=== PATIENT | male | born 1950 | race Caucasian/White ===

== ENCOUNTER 2024-04-12 14:05 | Emergency (ER) | payer MEDICARE, SELFPAY ==
[2024-04-12 14:08] VITALS: BP 136/63; BMI 24.1
[2024-04-12 14:11] VITALS: BP 136/63
[2024-04-12 14:28] LABS: % Basophils 0.2 % (0-2); % Eosinophils 0.1 % (0-6); % Immature Granulocytes 0.4 % (0-0.5); % Lymphocytes 7.1 % (20.5-51.1); % Neutrophils 87.2 % (42.2-75.2); Absolute Immature Granulocytes 0.1 10^3/uL (0-0.05); Absolute Monocytes 0.7 10^3/uL (0.1-0.6); Absolute Neutrophils 12.1 10^3/uL (1.4-6.5); Hematocrit 33.8 % (39.0-52.0); Hemoglobin 11.2 g/dL (13.0-18.0); Mean Corp Hgb Conc. 33.1 g/dL (33.0-37.0); Mean Corpuscular Hgb 26.7 pg (27.0-31.0); Mean Corpuscular Volume 80.7 fL (80.0-94.0); Mean Platelet Volume 10.8 fL (7.4-10.4); Nucleated Red Blood Cells % 0 % (-); Platelet Count 219 10^3/uL (130-400); Red Blood Cell Count 4.19 10^6/uL (4.70-6.10); Red Cell Dist. Width 14.7 % (11.5-14.5); White Blood Cell Count 13.9 10^3/uL (4.8-10.8)
[2024-04-12 14:33] LABS: Urine Albumin Trace (Neg - Trace); Urine Bilirubin Negative (Negative); Urine Character Slightly Cloudy (Clear); Urine Color Yellow; Urine Glucose 3+ (Negative); Urine Ketone 1+ (Negative); Urine Leukocyte 2+ (Negative); Urine Nitrite Positive (Negative); Urine Occult Blood 2+ (Negative); Urine Urobilinogen Negative (Neg - 1+)
[2024-04-12 14:43] LABS: Urine Bacteria Moderate (Negative); Urine Squamous Cell 0-2 /LPF (Few); Urine White Cell 90-100 /HPF (0-5)
[2024-04-12 14:44] LABS: ALT (SGPT) 19 U/L (0-50); AST (SGOT) 24 U/L (17-59); Alkaline Phosphatase 90 U/L (38-126); Blood Urea Nitrogen 26 mg/dl (9-20); Calcium 9.6 mg/dl (8.4-10.2); Carbon Dioxide 16 mmol/L (22-30); Chloride 95 mmol/L (98-107); Estimated Creatinine Clearance 44 ml/min; Glucose 290 mg/dl (70-99); Lipase 69 U/L (23-300); Potassium 4.6 mmol/L (3.5-5.1); Sodium 128 mmol/L (135-145); Total Bilirubin 0.6 mg/dl (0.2-1.3); Total Protein 6.6 g/dl (6.3-8.2); eGFR 57.29
[2024-04-12 15:00] VITALS: BP 112/65
--- NOTE | 2024-04-12 15:09 | ED.GENMED ---
History of Present Illness
General
Chief Complaint: Weakness
Time Seen by Provider: 04/12/24 15:04
History of Present Illness
History of Present Illness:
TIME OF INITIAL ENCOUNTER: 3:09 PM
HPI: Patient comes in by ambulance from home. He was having shaking chills earlier. However currently he feels overall improved. Family did give antipyretic earlier today. They also tried amoxicillin empirically. He did have increased urination
overnight. He has a history of kidney stone most recently managed about 4 months ago at an outside facility.
EXAM:
GENERAL: Well appearing in no distress
HEENT: Moist oral mucosa
CARDIOVASCULAR: No murmurs, normal heart rate, regular rhythm, No chest wall tenderness
PULMONARY: No respiratory distress, breath sounds are clear and equal
ABDOMEN: Soft with no peritoneal signs, minimal if any suprapubic tenderness
NEUROLOGIC: Excellent strength all extremities, no coordination deficits
PSYCHIATRIC: Appropriate mental status, normal insight and judgement
EXTREMITIES: Nontender, no edema, moves all extremities equally
SKIN: No rash, no lesions
NUMBER AND COMPLEXITY OF PROBLEMS ADDRESSED AT THE ENCOUNTER
� Chronic conditions affecting care: CAD, hypertension, hyperlipidemia, GERD, diabetes
� Acute Exacerbation and/or Progression of Chronic Illness: This is an acute problem
� Differential Diagnosis includes: UTI, dehydration, bacteremia, sepsis
AMOUNT AND/OR COMPLEXITY OF DATA TO BE REVIEWED AND ANALYZED
� I performed an independent evaluation of and my interpretation is:
EKG:
CT: CT imaging personally reviewed and agree with radiologist interpretation�no ureteral stone
X-rays:
Laboratory Studies: White count 13.9, hemoglobin 11.2, sodium 128, bicarb is 16, glucose 290, urinalysis shows 90-100 white cells per high-powered field
Other:
� Review of other/old records: The patient was admitted here in November and with AV block
� Clinical information was obtained by an independent historian: I spoke to the at bedside
� Prescriptions/Medications Considered but not given:
� Further testing considered but not performed:
RISK OF COMPLICATIONS AND/OR MORBIDITY OR MORTALITY OF PATIENT MANAGEMENT
� Social determinants of health affecting care: Lives at home
� Discussion with other providers:
� Escalation of care including admission/observation vs risk of discharge considered: The patient has a low bicarb and has leukocytosis however the vital signs are unremarkable. Overall he feels quite well. I offered to
consider keeping him here in the hospital. Will give IV fluids and also add a lactic acid level.
ANY OTHER UPDATES:
4:30 PM: The patient voided 30 minutes prior but still has a bladder scan of just under 400 mL. He states he had similar presentation with prior kidney stone. Will obtain CT imaging. Lactic acid pending.
6 PM: Lactic acid normal. He continues to feel well. He does not want to stay in the hospital and is eager to go home. Gave low-dose Cipro (GFR 44). He is to follow-up with his doctors with the [facility] and I did give him a copy of his
CT report. I offered and considered straight cath/Sim[facility] however the patient has no significant discomfort and has been able to void.
Past History
Past History
ED Past Medical History: CAD, HTN, Hypercholesterolemia and NIDDM
ED Past Surgical History: Cardiac (6 vessel CABG)
Social History
Drug: None
Phy Exam
Physical Exam
Physical Exam:
See HPI
Course
Orders/Labs/Results
Orders:
Orders
04/12/24 14:15
Electrocardiogram (*1) Urgent
Reason for Study: Other
Other Reason for Exam: weakness
04/12/24 14:16
EKG- Treatment ONCE
04/12/24 14:18
Complete Blood Count/With Diff Urgent
Comprehensive Metabolic Panel Urgent
Lipase Urgent
Urinalysis Reflex To Culture Urgent
Date Specimen was Collected: 04/12/24
Time Specimen was Collected: 14:16
Urine Microscopic Reflex Cult Urgent
Urine Culture Urgent
VICENTA Source: U
Specimen Description:
Date Specimen was Collected: 04/12/24
Time Specimen was Collected: 14:16
04/12/24 15:25
Bladder Scan- Treatment ONCE
CefTRIAXone [Rocephin] 1,000 mg IV NOW STA
04/12/24 15:48
0.9% Sodium Chloride 1000 ml [Nss] 1,000 ml IV BOLUS
04/12/24 16:19
Lactic Acid Q4H
Comment: CANCEL 2nd LACTIC ACID IF 1st LACTIC ACID IS LESS THAN 2
Blood Culture Q30M
VICENTA Source: Blood/Venous
Specimen Description:
Blood Culture Q30M
VICENTA Source: Blood/Venous
Specimen Description:
04/12/24 16:33
CT Abd/pel Without Iv Or Oral Urgent
Comment:
Reason For Exam: pain urinary hesitancy uti prior stone
04/12/24 20:00
Lactic Acid Q4H
Comment: CANCEL 2nd LACTIC ACID IF 1st LACTIC ACID IS LESS THAN 2
Abnormal Lab Results
04/12/24
14:18
WBC 13.9 H 10^3/uL
(4.8-10.8)
RBC 4.19 L 10^6/uL
(4.70-6.10)
Hgb 11.2 L g/dL
(13.0-18.0)
Hct 33.8 L %
(39.0-52.0)
MCH 26.7 L pg
(27.0-31.0)
RDW 14.7 H %
(11.5-14.5)
MPV 10.8 H fL
(7.4-10.4)
Abs Immat Gran (auto) 0.1 H 10^3/uL
(0-0.05)
Absolute Neuts (auto) 12.1 H 10^3/uL
(1.4-6.5)
Absolute Lymphs (auto) 1.0 L 10^3/uL
(1.2-3.4)
Absolute Monos (auto) 0.7 H 10^3/uL
(0.1-0.6)
Neutrophils % 87.2 H %
(42.2-75.2)
Lymphocytes % 7.1 L %
(20.5-51.1)
Sodium 128 L mmol/L
(135-145)
Chloride 95 L mmol/L
(98-107)
Carbon Dioxide 16 L mmol/L
(22-30)
BUN 26 H mg/dl
(9-20)
Glucose 290 H mg/dl
(70-99)
Urine Ketones 1+ A
(Negative)
Ur Occult Blood Reflex 2+ A
(Negative)
Urine Nitrite (Reflex) Positive A
(Negative)
Leukocyte Esterase Rfl 2+ A
(Negative)
Urine RBC 3-6 A /HPF
(0-2)
Urine WBC (Reflex) 90-100 A /HPF
(0-5)
Urine Bacteria (Reflex) Moderate A
(Negative)
Urine Glucose 3+ A
(Negative)
04/12/24 14:18
04/12/24 14:18
Vital Signs
Initial and Last Documented VS:
Initial Vital Signs
Temp Pulse Resp BP Pulse Ox
36.9 C 90 14 136/63 96
04/12/24 14:08 04/12/24 14:08 04/12/24 14:08 04/12/24 14:08 04/12/24 14:08
Last Documented Vital Signs
Temp Pulse Resp BP Pulse Ox
36.9 C 90 14 136/63 96
04/12/24 14:08 04/12/24 14:08 04/12/24 14:08 04/12/24 14:08 04/12/24 14:08
*Critical Care Note
Total Time (30-74mins, 75-104mins- exclusive of procedures): Not Applicable
ED Attending Note
-
Portions of this chart may have been created with voice recognition software.� Occasional wrong word or��sound alike� substitutions may have occurred due to the inherent limitations of voice recognition software.
Discharge Plan
Departure
Patient Disposition: Home (Routine Discharge)
Date of Disposition: 04/12/24
Time of Disposition: 17:55
Patient with high blood pressure during this ER visit?: Yes
Discharge Problem:
Urinary tract infection
Instructions: Urinary Tract Infection, Adult ED
Prescriptions:
New
ciprofloxacin HCl [Cipro] 250 mg tablet
250 mg PO BID Qty: 14 0RF
No Action
glyburide 2.5 MG tablet
2.5 mg PO BID
lisinopril 2.5 MG tablet
2.5 mg PO DAILY
rosuvastatin [Crestor] 40 MG tablet
40 mg PO QPM
empagliflozin-linagliptin [Glyxambi] 1 EACH tablet
1 ea PO DAILY
clopidogrel [Plavix] 75 MG tablet
75 mg PO DAILY Qty: 90 0RF
pantoprazole 40 MG tablet,delayed release (DR/EC)
40 mg PO BID 90 Days 0RF
metoprolol succinate [Toprol XL] 25 MG tablet extended release 24 hr
25 mg PO BID 90 Days 0RF
Referrals:
Margarita Martinez MD [Family Provider] -
Activity Restrictions/Additional Instructions:
The white blood cell count is elevated and the bicarb level is low therefore I offered to keep you in the hospital. Your lactic acid level fortunately, was normal. We gave an IV dose of Rocephin here. Start Cipro�I gave you a lower than typical
dose of Cipro due to slightly impaired renal function. Follow-up with your doctors. Return here if worse or other concerns
CAT scan:
4 mm right middle lobe pulmonary nodule. Consider follow-up in one year if the patient is at increased risk.
The [facility] Pulmonary Nodule Advisory Board hotline was notified with the findings on 04/12/2024 5:28 PM.
Hydropic gallbladder. Cholelithiasis. Choledocholithiasis. No CT evidence of acute cholecystitis.
Tiny bilateral nonobstructing intrarenal calculi. Bilateral renal cysts; left renal cysts are slightly hyperdense, likely proteinaceous or hemorrhagic. Consider nonemergent ultrasound follow-up to exclude less likely possibility of solid lesions.
Mild to moderate bilateral hydroureteronephrosis with tortuous ureters, though no ureteral calculus. Mild perinephric stranding. Findings may be related to prior remote or persistent chronic ureteral obstruction, or possibly reflux. Superimposed
infection can't be excluded.
Mild to moderate distention of the urinary bladder with diffuse mild to moderate bladder wall thickening. No bladder calculus.
Constipation with mild to moderate colonic fecal burden.
Interventions
Interventions:
*Risk Screen - Suicide Last Done: 04/12/24 14:08
*General Assessment Last Done: 04/12/24 14:08
*Neglect/Abuse Screening Last Done: 04/12/24 14:08
*ED COVID-19 Vaccine History Last Done: 04/12/24 14:08
Discharge Date and Time
Print Language: AUSTRALIAN
[2024-04-12] MEDS: ROCEPHIN 1000 MG IV (15:37)
[2024-04-12 16:00] VITALS: BP 117/59
[2024-04-12] MEDS: NSS 1000 IV (16:26)
[2024-04-12 16:52] LABS: Lactic Acid 1.1 mmol/L (0.7-2.0)
[2024-04-12 18:16] VITALS: BP 129/52
== END 2024-04-12 18:36 | disposition home or self-care (01) ==
LOC: EMR 14:05
PROVIDERS: EMERGENCY PHYSICIAN Emergency Medicine; FAMILY PHYSICIAN Internal Medicine
DX: R53.1 Weakness (principal); I25.10 Atherosclerotic heart disease of native coronary artery without angina pectoris; I10 Essential (primary) hypertension; E78.00 Pure hypercholesterolemia, unspecified; E11.9 Type 2 diabetes mellitus without complications; Z87.440 Personal history of urinary (tract) infections; Z87.442 Personal history of urinary calculi; Z95.1 Presence of aortocoronary bypass graft
CPT/HCPCS: 99284; 96374; 96361; 74176; 80053; 81003; 81015; 83605; 83690; 85025; 87040; 87086; 93005